=== PATIENT | female | born 1980 | race Hispanic/Latino ===

== ENCOUNTER 2016-09-08 04:19 | Inpatient (IN) ==
[2016-09-08] MEDS ORDERED: PITOCIN 30 UNITS/LR 30 UNITS/500 ML IV.SOLN IV SCH (04:24)
[2016-09-08] MEDS ORDERED: TYLENOL PO PRN (04:24)
[2016-09-08] MEDS ORDERED: LR 1,000 ML IV SCH (04:24)
[2016-09-08] MEDS ORDERED: REGLAN PO ONE (04:24)
[2016-09-08] MEDS ORDERED: STADOL IV PRN (04:24)
[2016-09-08] MEDS ORDERED: PEPCID IV PRN (04:24)
[2016-09-08] MEDS ORDERED: AMPICILLIN 2 GM/NS 2 GM/100 ML IVPB IV ONE (04:24)
[2016-09-08] MEDS ORDERED: ZOFRAN IV PRN (04:24)
[2016-09-08] MEDS ORDERED: PEPCID PO ONE (04:24)
[2016-09-08] MEDS ORDERED: PEPCID PO PRN (04:24)
[2016-09-08] MEDS ORDERED: KEFZOL 1 GM/D5W 1 GM/50 ML IVPB IV PRN (04:24)
[2016-09-08] MEDS ORDERED: SODIUM CHLORIDE 0.9% INJ SCH (04:30)
[2016-09-08 04:43] LABS: MANUAL DIFF NEEDED? NO
[2016-09-08 04:45] LABS: BASO% 0.2 % (0.0-0.8); EOS# 0.09 X1000 (0.0-0.7); EOS% 1.5 % (0.0-10.0); HEMATOCRIT 37.9 % (37.0-47.0); HEMOGLOBIN 13.2 g/dL (12.0-16.0); IMM GRAN# 0.05 X1000 (0.0-0.04); IMM GRAN% 0.9 % (0.0-0.5); LYMPH# 1.77 X1000 (1.2-3.4); LYMPH% 30.3 % (20.5-51.1); MCH 29.3 PG (27-31); MCHC 34.8 g/dL (33-37); MCV 84.2 FL (81-99); MONO# 0.45 X1000 (0.11-0.59); MONO% 7.7 % (1.7-9.3); MPV 10.6 FL (7.4-10.4); NEUT% 59.4 % (42.2-75.2); PLT 164 X1000 (130-400)
[2016-09-08] MEDS ORDERED: MINERAL OIL PO PRN (05:20)
[2016-09-08] MEDS ORDERED: PITOCIN 20 UNITS/LR 20 UNITS/1,000 ML IV.SOLN IV SCH (05:20)
[2016-09-08] MEDS ORDERED: AMBIEN PO PRN (05:20)
[2016-09-08] MEDS ORDERED: BENADRYL PO PRN (05:20)
[2016-09-08] MEDS ORDERED: BOOSTRIX VACCINE IM ONE (05:20)
[2016-09-08] MEDS ORDERED: CYTOTEC PO PRN (05:20)
[2016-09-08] MEDS ORDERED: XYLOCAINE-MPF 1% INJ PRN (05:20)
[2016-09-08] MEDS ORDERED: HYDROXYZINE PO PRN (05:20)
[2016-09-08] MEDS ORDERED: NORCO-5 PO PRN (05:20)
[2016-09-08] MEDS ORDERED: BENADRYL IV PRN (05:20)
[2016-09-08] MEDS ORDERED: PITOCIN 30 UNITS/LR 30 UNITS/500 ML IV.SOLN IV ONE (05:20)
[2016-09-08] MEDS ORDERED: PITOCIN IM PRN (05:20)
[2016-09-08] MEDS ORDERED: HYDROXYZINE IM PRN (05:20)
[2016-09-08] MEDS ORDERED: PERI MEDS (DERMOPLAST/NUPERCAINAL/TUCKS) MISC PRN (05:20)
[2016-09-08] MEDS ORDERED: M-M-R II VACCINE SUBQ ONE (05:20)
--- NOTE | 2016-09-08 05:36 | OPERATIVE NOTE ---
PROCEDURE DATE: 09/08/2016 PREDELIVERY DIAGNOSES: 1. Intrauterine at term. 2. Active labor. 3. Group B streptococcus carrier status positive. POSTDELIVERY DIAGNOSES: 1. Intrauterine at term. 2. Active labor. 3. Group B streptococcus carrier status positive. 4. Velamentous cord insertion. CONDITION: Stable PHYSICIAN: Trey Cruz MD ANESTHESIA: None. FINDINGS: Viable female infant, 6 pounds 9 ounces, 10 and 10 Apgars. Cord was 3 vessels but velamentous cord insertion was found. The placenta did deliver intact. There were no lacerations or tears. ESTIMATED BLOOD LOSS: 100 mL. HISTORY AND PROCEDURE IN DETAIL: Ms. Lozoya is a 35-year-old, 2, para 1, with estimated date of delivery of 09/22/2016, who presented this morning completely dilated after contractions at 2:30 this morning. She was known to be GBS positive, so she was quickly given antibiotics and within approximately 20 minutes at presentation, membranes were ruptured. Thin meconium was noted. At approximately 3 minutes after, that she delivered a viable female , occipitoanterior over an intact perineum. Once head delivered, shoulders and rest of the body delivered without difficulty. The was placed on mother's abdomen. Cord doubly clamped and cut and care of infant taken over by nursery personnel. The cord was noted to have 3 vessels and cord blood was obtained. Then, very gentle traction resulted in delivery of the placenta after approximately 5 minutes. It was teased out. It was felt there was not a good connection of the cord to the placenta, so it was very gently dislodged due to contractions of the uterus and tension on the cord. Once the placenta started to come through the cervix, it was grasped with a ring forceps and delivered intact, taking care to the heated to carefully deliver trailing membranes. It was placed in the bucket on the table and inspected. It did appear to be intact. There did not appear to be any membranes missing. It was a velamentous cord insertion. So, after this was done, the perineum was inspected. There were no lacerations or tears. Vaginal sweep did not reveal any clots or foreign material. ESTIMATED BLOOD LOSS: 100 mL. Expect routine . cc: Trey Cruz MD
[2016-09-08] MEDS: MOTRIN PO PRN ×2 (05:45→14:39)
[2016-09-08] MEDS: NORCO-10 PO PRN ×2 (05:45→08:54)
[2016-09-08] MEDS ORDERED: AMPICILLIN 1 GM/NS 1 GM/50 ML IVPB IV SCH (08:25)
[2016-09-08] MEDS: PRECARE PO SCH (08:54)
[2016-09-08] MEDS ORDERED: PERICOLACE PO SCH (21:00)
[2016-09-09] MEDS: NORCO-10 PO PRN (02:39)
[2016-09-09] MEDS: MOTRIN PO PRN ×2 (02:39→18:45)
[2016-09-09 06:08] LABS: MANUAL DIFF NEEDED? NO
[2016-09-09 06:21] LABS: BASO% 0.3 % (0.0-0.8); EOS# 0.09 X1000 (0.0-0.7); EOS% 1.3 % (0.0-10.0); HEMATOCRIT 32.7 % (37.0-47.0); IMM GRAN# 0.03 X1000 (0.0-0.04); IMM GRAN% 0.4 % (0.0-0.5); LYMPH# 1.75 X1000 (1.2-3.4); LYMPH% 25.7 % (20.5-51.1); MCHC 33.6 g/dL (33-37); MCV 86.3 FL (81-99); MONO# 0.47 X1000 (0.11-0.59); MONO% 6.9 % (1.7-9.3); MPV 10.8 FL (7.4-10.4); NEUT% 65.4 % (42.2-75.2); PLT 141 X1000 (130-400); RBC 3.79 XMIL (4.2-5.4)
[2016-09-09] MEDS: PRECARE PO SCH (09:08)
[2016-09-10 07:08] VITALS: BP 108/67
[2016-09-10] MEDS: MOTRIN PO PRN (07:41)
[2016-09-10] MEDS: PRECARE PO SCH (08:44)
== END 2016-09-10 10:45 | disposition home or self-care (01) ==
LOC: P.LD 04:19 → P.WC 09-09 10:38
PROVIDERS: ADMIT Obstetrics & Gynecology; ATTEND Obstetrics & Gynecology